=== PATIENT | male | born 1950 | race Two or more races ===

== ENCOUNTER 2021-12-23 10:37 | Emergency (ER) | payer BC ==
[~2021-12-23] VITALS: Ht 188 cm; Wt 124.7 kg
--- NOTE | 2021-12-23 11:02 | NUR ---
TO ER BED7. BIBS C/O BACK PAIN SINCE YESTERDAY RADIATING TO BOTH LEGS,DENIES ANY TRAUMA. PT PAIN IS 8/10 ON PAIN SCALE. AWAITING MD ORDERS.
[2021-12-23] MEDS ORDERED: CYCLOBENZAPRINE 10 MG TABLET PO ONE (12:00)
[2021-12-23] MEDS ORDERED: KETOROLAC TROMETHAMINE INJ 60 MG/2 ML VIAL IM ONE ×2 (12:00→12:09)
[2021-12-23] MEDS ORDERED: CYCL5TAB PO (12:05)
[2021-12-23] MEDS ORDERED: NAPR-1164 PO (12:05)
[2021-12-23] MEDS ORDERED: LIDO30AD10 TP (12:05)
[2021-12-23] MEDS ORDERED: CYCLOBENZAPRINE 10 MG TABLET ONE (12:09)
--- NOTE | 2021-12-23 12:25 | NUR ---
Patient discharged to home in stable condition. Written and verbal after care instructions given. Patient verbalizes understanding of instruction.
[2021-12-23 13:28] VITALS: BP 180/103
== END 2021-12-23 12:26 | disposition home or self-care (01) ==
LOC: ER 10:42
DX: M54.16 Radiculopathy, lumbar region (principal); I10 Essential (primary) hypertension; Z98.890 Other specified postprocedural states; Z60.2 Problems related to living alone; Z79.899 Other long term (current) drug therapy
CPT/HCPCS: 99283; 96372; J1885